=== PATIENT | female | born 1975 | race African-American/Black ===

== ENCOUNTER 2025-03-16 13:46 | Emergency (ER) | payer BC, OTHER ==
[~2025-03-16] VITALS: Ht 160 cm; Wt 73.4 kg
[2025-03-16 13:48] VITALS: TEMP 98.7
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
[2025-03-16] MEDS: HYDROcodone-ACET 5/325MG TAB PO ONE (16:04)
[2025-03-16] MEDS: diazePAM 2 MG TAB PO ONE (16:04)
[2025-03-16 16:35] VITALS: BP 137/96; PULSE 83; RESP 14; O2SAT 98
[2025-03-16] MEDS ORDERED: CYCL-839 PO (18:01)
== END 2025-03-16 18:15 | disposition home or self-care (01) ==
LOC: ER 13:46
DX: S16.1XXA Strain of muscle, fascia and tendon at neck level, initial encounter (principal); S39.012A Strain of muscle, fascia and tendon of lower back, initial encounter; V89.2XXA Person injured in unspecified motor-vehicle accident, traffic, initial encounter; Y93.89 Activity, other specified; Y92.410 Unspecified street and highway as the place of occurrence of the external cause; Y99.8 Other external cause status
CPT/HCPCS: 72040; 72070; 72100